=== PATIENT | male | born 1970 | race Caucasian/White ===

== ENCOUNTER 2020-04-03 18:57 | Emergency (ER) | payer BC, SELFPAY ==
[~2020-04-03] VITALS: Ht 165.1 cm; Wt 99.8 kg
[2020-04-03 19:06] VITALS: BP 142/75
[2020-04-03 19:37] VITALS: BP 142/75
== END 2020-04-03 19:37 | disposition home or self-care (01) ==
LOC: MED 18:57
DX: U07.1 COVID-19 (principal); E11.9 Type 2 diabetes mellitus without complications
CPT/HCPCS: 99283; U0003